=== PATIENT | female | born 1985 | race Caucasian/White ===

== ENCOUNTER → 2017-03-03 | Outpatient (CLI) | payer OTHER ==
[~2017-03-03] MED LIST: ASPIRIN LO-DOSE81 MG PO; MOTRIN800 MG PO; PERCOCET 5-3251 EACH PO; PRENATAL 1+1)(P1 TAB PO; ZANTAC (NON-FO150 MG PO
== END | disposition disaster alternative care site (69) ==
LOC: GLAB 08:00
DX: R73.02 Impaired glucose tolerance (oral) (principal)

== ENCOUNTER 2017-05-31 00:33 | Inpatient (IN) | payer OTHER ==
[~2017-05-31] VITALS: Ht 162.6 cm; Wt 76.6 kg
--- NOTE | ~2017-05-31 | OR ---
PATIENT'S NAME: AVA [facility]IGUES [facility] AGE: 31 Y [address] ROOM: [place] [address] LOCATION: [facility] ADMIT DATE: 05/31/2017 OR/Procedure Report DISCHARGE DATE: FAMILY PHYSICIAN: PHYSICIAN, NO ATTENDING PHYSICIAN: ABDULLAHI FREEMAN SURGEON: Kamille Weinstein MD ESTIMATOR PAPERBOARD BOXES: DATE OF PROCEDURE: 05/31/2017 PREOPERATIVE DIAGNOSES: 1. Intrauterine at 38+ weeks. 2. Labor. POSTOPERATIVE DIAGNOSES: 1. Intrauterine at 38+ weeks. 2. Labor. PROCEDURE: Spontaneous vaginal delivery. ESTIMATED BLOOD LOSS: 300 mL. ANESTHESIA: Epidural. FINDINGS: Female infant, score 6 and 8, weight 6 pounds 13 ounces. Intact placenta, 3-vessel cord. First-degree perineal laceration. Clear amniotic fluid. INDICATIONS: This patient is a 31-year-old, 2, para 1-0-0-1 female. She presented in active labor. She progressed along a normal labor curve to complete. She began expulsive efforts, but station was -2 and she was OP. She was not moving the baby at all, so we positioned the patient and allowed her to labor down for about an hour to hour and a half, and then she was complete and +1. She pushed for about 15 minutes. There was a terminal heart rate deceleration down to the 80s at the very end of her pushing, which just lasted for a couple of minutes. Otherwise, the heart rate was reassuring. DESCRIPTION OF PROCEDURE: With expulsive effort, the head delivered over an intact perineum. There was a tight nuchal cord that was unable to be reduced. The baby was delivered through that. The rest of the fetus was delivered. The nose and mouth were bulb suctioned. The cord was clamped and cut. The was handed to awaiting nurse. Cord blood and cord pH were drawn. The placenta delivered with manual traction. Cervix, vagina, and perineum were examined. There was a second-degree perineal laceration noted and repaired in standard fashion with Vicryl suture. PATIENT'S NAME: AVA RODRIGUES [facility] AGE: 31 Y [address] ROOM: [place] [address] LOCATION: [facility] ADMIT DATE: 05/31/2017 OR/Procedure Report DISCHARGE DATE: FAMILY PHYSICIAN: TRICIA SANCHEZ ATTENDING PHYSICIAN: ABDULLAHI FREEMAN MD REENA CRUZ/rigobertol /[id number] d: 05/31/17601 t: 06/07/17 1757, OPERATIVE SUMMARY
[~2017-05-31 00:33] MED LIST changes: -ASPIRIN LO-DOSE81 MG PO; -ZANTAC (NON-FO150 MG PO
[2017-05-31 01:16] LABS: BASOPHIL % 0.2 %; EOSINOPHIL % 0.3 %; HEMATOCRIT 32.9 % (33.0-46.0); HEMOGLOBIN 11.4 g/dL (11.0-15.0); IMMATURE GRANULOCYTE # 0.1 K/uL (0.0-0.3); IMMATURE GRANULOCYTE % 0.6 %; LYMPHOCYTE # 2.2 K/uL (0.8-4.0); LYMPHOCYTE % 16.9 %; MCH 34.1 pg (27.0-34.0); MCHC 34.7 gm/dL (32.0-36.5); MCV 98.5 fl (83.0-98.0); MONOCYTE # 0.9 K/uL (0.0-1.0); MONOCYTE % 7.1 %; MPV 10.5 fl (9.4-12.4); NEUTROPHIL # (ANC) 9.9 K/uL (1.8-7.8); NEUTROPHIL % 74.9 %; NRBC % 0 /100WBC (0-0.00); PLATELET COUNT 214 K/uL (150-450); RBC 3.34 M/uL (3.50-5.50); RDW-CV 13.3 % (11.9-14.6); WBC 13.2 K/uL (4.0-11.0)
[2017-05-31] MEDS ORDERED: ASPIRIN LO-DOSE81 MG PO (01:44)
[2017-05-31] MEDS ORDERED: ZANTAC (NON-FO150 MG PO (01:44)
[2017-05-31 05:56] LABS: PCO2 42 mmHg (35-45); PO2 35 mmHg (80-90)
[2017-05-31 05:57] LABS: BICARBONATE 20.2 mmol/L (18.0-23.0)
[2017-06-01 04:03] LABS: BASOPHIL # 0.1 K/uL (0.0-0.2); BASOPHIL % 0.5 %; EOSINOPHIL # 0.1 K/uL (0.0-0.5); EOSINOPHIL % 1.5 %; HEMATOCRIT 31.8 % (33.0-46.0); HEMOGLOBIN 10.8 g/dL (11.0-15.0); IMMATURE GRANULOCYTE # 0.1 K/uL (0.0-0.3); IMMATURE GRANULOCYTE % 0.9 %; LYMPHOCYTE % 31.6 %; MCH 34.6 pg (27.0-34.0); MCV 101.9 fl (83.0-98.0); MONOCYTE # 0.8 K/uL (0.0-1.0); MONOCYTE % 8.3 %; MPV 10.1 fl (9.4-12.4); NEUTROPHIL # (ANC) 5.4 K/uL (1.8-7.8); NEUTROPHIL % 57.2 %; NRBC % 0 /100WBC (0-0.00); RBC 3.12 M/uL (3.50-5.50); RDW-CV 13.6 % (11.9-14.6); WBC 9.4 K/uL (4.0-11.0)
[2017-06-01 04:09] LABS: PLATELET COUNT 156 K/uL (150-450)
--- NOTE | 2017-06-01 05:13 | NUR ---
VSS. Pain rating WNL. Last had Motrin at 2049. Fundus firm and midline. Small flow. Breasts and nipples not assessed due to bottlefeeding infant. Voiding well. Ambulates in room. Saline lock dc'd this am. Home today.
[2017-06-01] MEDS ORDERED: MOTRIN800 MG PO (10:59)
[2017-06-01] MEDS ORDERED: PERCOCET 5-3251 EACH PO (11:00)
== END 2017-06-01 12:00 | disposition disaster alternative care site (69) | DRG 775 ==
LOC: GOBM 00:33 → GOBS 00:33 → GOBM 00:34 → GOBS 01:03 → GOBM 06-13 08:53
PROVIDERS: Obstetrics & Gynecology; ADMIT Obstetrics & Gynecology
PROC: 10E0XZZ Delivery of Products of Conception, External Approach (ICD-10-PCS; principal; 2017-05-31)
PROC: 4A1HX4Z Monitoring of Products of Conception, Cardiac Electrical Activity, External Approach (ICD-10-PCS; principal; 2017-05-31)
PROC: 0HQ9XZZ Repair Perineum Skin, External Approach (ICD-10-PCS; principal; 2017-05-31)
DX: O70.0 First degree perineal laceration during delivery (principal); F17.290 Nicotine dependence, other tobacco product, uncomplicated; O99.334 Smoking (tobacco) complicating childbirth; Z3A.38 38 weeks gestation of pregnancy; Z37.0 Single live birth
CPT/HCPCS: J1650; J2001; J2590; J7120